=== PATIENT | female | born 1985 | race Caucasian/White ===

== ENCOUNTER 2020-03-25 21:46 | Inpatient (IN) ==
[2020-03-25] MEDS ORDERED: ONDANSETRON 4 MG/2 ML VIAL IV PRN (22:31)
[2020-03-25 22:51] LABS: Basophils % 0.1 % (0.0-0.8); Eosinophils % 0.5 % (0.00-10.9); Hematocrit 28.1 VOL% (35.7-47.0); Hemoglobin 9.7 GM/DL (12.0-16.0); Immature Granulocytes % 0.7 %; Immature Granulocytes Absolute 0.05 #; Lymphocytes # 1.7 10*3/uL (1.4-4.0); Lymphocytes % 22.4 % (21.3-54.2); Mean Corpuscular HGB Conc 34.5 GM/DL (32-36); Mean Corpuscular Volume 96.2 FL (87-102); Monocytes % 8.6 % (1.7-12.7); Neutrophils % 67.7 % (38.7-73.9); Platelet Count 223 T/CUMM (130-400); Red Blood Count 2.92 MC/CUMM (3.8-5.5); Red Cell Distribution Width 13.2 % (9.3-17.3); White Blood Count 7.6 T/CUMM (4-12)
[2020-03-25] MEDS ORDERED: LACTATED RINGERS 1,000 ML IV SCH (23:00)
[2020-03-25] MEDS: CLINDAMYCIN INJ 900 MG in PREMIX 1 EACH IV SCH (23:18)
[2020-03-25 23:33] LABS: Albumin 2.4 G/DL (3.4-5.0); Bilirubin,Total 0.4 MG/DL (0.2-1.0); Calcium 8.7 MG/DL (8.5-10.1); Osmolality,Calculated 272.8 MOS/KG (273-304); Total Protein 6.6 G/DL (6.4-8.3)
[2020-03-25] MEDS ORDERED: OXYTOCIN/LR 20 UNIT/1,000 ML BAG IV SCH (23:45)
[2020-03-25] MEDS ORDERED: MEPERIDINE 50 MG/1 ML VIAL IM PRN (23:48)
[2020-03-25] MEDS ORDERED: BUTORPHANOL 2 MG/ML VIAL IV PRN (23:48)
[2020-03-26] MEDS: CLINDAMYCIN INJ 900 MG in PREMIX 1 EACH IV SCH (07:21)
[2020-03-26] MEDS ORDERED: CITRIC ACID/SODIUM CITRATE 30 ML UDCUP PO ONE (08:37)
[2020-03-26] MEDS ORDERED: LACTATED RINGERS 1,000 ML IV ONE (08:37)
[2020-03-26] MEDS ORDERED: FAMOTIDINE 20 MG/2 ML VIAL IV ONE (08:37)
[2020-03-26] MEDS ORDERED: ePHEDrine 50 MG/ML VIAL IV PRN (08:37)
[2020-03-26] MEDS ORDERED: hydrOXYzine HCL 25 MG/1 ML VIAL IM PRN (08:38)
[2020-03-26] MEDS ORDERED: PROMETHAZINE 25 MG/1 ML VIAL IM ONE (08:38)
[2020-03-26] MEDS ORDERED: NALOXONE 0.4 MG/ML VIAL IV PRN (08:38)
[2020-03-26] MEDS ORDERED: diphenhydrAMINE 50 MG/1 ML VIAL IV PRN ×2 (08:38)
[2020-03-26] MEDS ORDERED: fentaNYL 2 MCG/ROPIV 0.2% EPID 100 ML EPIDURAL SCH (09:00)
[2020-03-26 11:51] LABS: Bilirubin,Urine Negative (Negative); Blood, Urine Negative (Negative); Glucose,Urine (UA) Negative (Negative); Ketones,Urine 5 mg/dL (Negative); Mucus,Urine Occasional /LPF (Occasional); Nitrite,Urine Negative (Negative); Protein,Urine Negative; Urine Appearance CLEAR (Clear); Urine Color Straw (Yellow); Urine Specific Gravity 1.008 (1.001-1.035); Urine Urobilinogen < 2.0 EU/DL (0.2-1.0)
[2020-03-26] MEDS ORDERED: miSOPROStoL 200 MCG TABLET ONE (12:09)
[2020-03-26] MEDS ORDERED: LIDOCAINE 1% 50 ML VIAL ONE (12:10)
[2020-03-26] MEDS ORDERED: METHYLERGONOVINE 0.2 MG/1 ML AMP ONE (12:10)
[2020-03-26 13:25] LABS: Cord Venous Blood HCO3 24.4 MMOL/L; Cord Venous Blood PCO2 42.8 MMHG; Cord Venous Blood PO2 31.6
[2020-03-26] MEDS ORDERED: OXYTOCIN/LR 20 UNIT/1,000 ML BAG IV ONE (15:37)
[2020-03-26] MEDS ORDERED: IBUPROFEN 800 MG TABLET PO PRN (21:47)
[2020-03-27 06:34] LABS: Basophils % 0.2 % (0.0-0.8); Eosinophils # 0.1 10*3/uL (0.0-0.87); Eosinophils % 0.8 % (0.00-10.9); Hematocrit 26.6 VOL% (35.7-47.0); Immature Granulocytes % 0.6 %; Immature Granulocytes Absolute 0.06 #; Lymphocytes # 2.2 10*3/uL (1.4-4.0); Lymphocytes % 20.2 % (21.3-54.2); Mean Corpuscular HGB Conc 33.8 GM/DL (32-36); Mean Corpuscular Volume 97.4 FL (87-102); Mean Platelet Volume 10.1 FL (9.6-12.0); Monocytes % 5.7 % (1.7-12.7); Neutrophils % 72.5 % (38.7-73.9); Platelet Count 191 T/CUMM (130-400); Red Blood Count 2.73 MC/CUMM (3.8-5.5); Red Cell Distribution Width 13.1 % (9.3-17.3); White Blood Count 10.6 T/CUMM (4-12)
[2020-03-27] MEDS ORDERED: DOCUSATE SODIUM 100 MG CAPSULE PO SCH (09:00)
[2020-03-28 07:34] VITALS: BP 88/51
== END 2020-03-28 12:10 | disposition home or self-care (01) | DRG 807 ==
LOC: N.LDOUT 21:46 → N.LD 21:48 → N.OB 03-26 15:53
PROVIDERS: ADMIT Obstetrics & Gynecology; ATTEND Obstetrics & Gynecology